=== PATIENT | male | born 1995 | race Caucasian/White ===

== ENCOUNTER 2017-04-19 14:10 | Emergency (ER) | payer BC, OTHER ==
[~2017-04-19] VITALS: Ht 180.3 cm; Wt 146.3 kg
[2017-04-19 14:11] VITALS: BP 174/79
[2017-04-19] MEDS ORDERED: ANEXSIA, NORCO 7.5MG/325MG TABLET(HYDROCODONE/APAP) PO ONE (14:45)
[2017-04-19] MEDS ORDERED: NORCO, ANEXSIA 5/325MG TABLET (HYDROcodone/ACETAMINOPHEN) PO ONE (15:00)
[2017-04-19] MEDS ORDERED: IBUP80TA PO (15:13)
== END 2017-04-19 15:27 | disposition home or self-care (01) ==
LOC: M ED 14:10
DX: S33.5XXA Sprain of ligaments of lumbar spine, initial encounter (principal); X58.XXXA Exposure to other specified factors, initial encounter; Y92.239 Unspecified place in hospital as the place of occurrence of the external cause; Y93.89 Activity, other specified; Y99.0 Civilian activity done for income or pay; I10 Essential (primary) hypertension; Z82.49 Family history of ischemic heart disease and other diseases of the circulatory system

== ENCOUNTER → 2018-09-02 | Outpatient (REF) | payer BC | LOC: M LAB REF 12:52 | DX: J00 Acute nasopharyngitis [common cold] (principal) | CPT/HCPCS: 87081 ==

== ENCOUNTER → 2019-01-29 | Outpatient (CLI) | payer BC ==
[~2019-01-29] MED LIST: IBUP80TA PO
--- NOTE | 2019-01-29 12:12 | REP ---
LEFT SHOULDER, THREE VIEWS: HISTORY: Contusion. There is no acute fracture or dislocation. The joint spaces are normal in appearance. A calcified density is present inferomedial to the head of the humerus. IMPRESSION: There is no acute fracture or dislocation. Electronically Signed by Geoff Villanueva MD 01/29/2019 12:14 P
== END ==
LOC: M ADAMS 10:17
PROVIDERS: ATTEND Physician Assistant Medical
DX: S40.012A Contusion of left shoulder, initial encounter (principal); X58.XXXA Exposure to other specified factors, initial encounter; Y92.89 Other specified places as the place of occurrence of the external cause

== ENCOUNTER 2023-03-18 14:25 | Emergency (ER) | payer BC ==
[~2023-03-18] VITALS: Ht 180.3 cm; Wt 185.3 kg
[2023-03-18] MEDS ORDERED: ACETAMINOPHEN 500 MG TAB PO ONE (18:25)
[2023-03-18 20:17] VITALS: BP 176/120; TEMP 98.3; O2SAT 98
== END 2023-03-18 20:33 | disposition home or self-care (01) ==
LOC: M ED 14:25
DX: S99.911A Unspecified injury of right ankle, initial encounter (principal); I10 Essential (primary) hypertension; J45.909 Unspecified asthma, uncomplicated; Z79.1 Long term (current) use of non-steroidal anti-inflammatories (NSAID)